=== PATIENT | male | born 1960 | race Hispanic/Latino ===

== ENCOUNTER 2018-03-11 17:00 | Inpatient (IN) | payer OTHER ==
[~2018-03-11] VITALS: Ht 157.5 cm; Wt 82.9 kg
[2018-03-11 17:39] LABS: BASOPHILS % (AUTO) 0.1 % (0.0-5.0); LYMPHOCYTES % (AUTO) 3.8 % (21.0-51.0); MEAN CORPUSCULAR HEMOGLOBIN 34.2 pg (27.0-33.0); MEAN CORPUSCULAR HGB CONC 32.1 g/dL (32.0-36.0); MEAN CORPUSCULAR VOLUME 106.7 fL (79-99); MONOCYTES % (AUTO) 7.9 % (3.0-13.0); NEUTROPHILS % (AUTO) 88.2 % (40.0-77.0); NUCLEATED RED BLOOD CELLS 0.1 % (0.0-0.19); PLATELET COUNT (AUTO) 101 K/uL (130-400); RED BLOOD CELL COUNT(AUTO) 1.43 MIL/uL (4.50-6.20); RED CELL DISTRIBUTION WIDTH 19.8 % (11.0-15.5); WHITE BLOOD COUNT (AUTO) 21.4 K/uL (4.8-10.8)
[2018-03-11] MEDS ORDERED: LACTATED RINGERS 1000ML 1,000 ML IV ONE (17:40)
[2018-03-11 17:50] LABS: HEMATOCRIT 15.2 % (42-54)
[2018-03-11 17:52] LABS: CREATININE 1.6 mg/dL (0.5-1.5); POTASSIUM 5.7 mmol/L (3.5-5.1)
[2018-03-11] MEDS ORDERED: CEFTRIAXONE SODIUM 1 GM ONE (18:40)
[2018-03-11] MEDS ORDERED: SODIUM CHLORIDE 0.9% 50 ML IV ONE (18:41)
[2018-03-11 18:54] LABS: INR 2.66 (0.85-1.15); PARTIAL THROMBOPLASTIN TIME 52.1 SEC (26.3-35.5); PROTHROMBIN TIME 27.4 SEC (9.6-11.6)
[2018-03-11] MEDS ORDERED: FAMOTIDINE/PF 20 MG/2 ML VIAL IV ONE (19:09)
[2018-03-11] MEDS ORDERED: OCTREOTIDE ACETATE 100 MCG/ML AMP IVP ONE (19:30)
[2018-03-11] MEDS ORDERED: SODIUM CHLORIDE 0.9% 250 ML IV ONE ×2 (19:35→21:05)
[2018-03-11] MEDS ORDERED: PHYTONADIONE 1 MG/0.5 ML AMP SQ SCH (20:30)
[2018-03-11] MEDS: SODIUM CHLORIDE 0.9% 1000ML 1,000 ML IV SCH (20:58)
[2018-03-11] MEDS ORDERED: ONDANSETRON HCL 4 MG/2 ML VIAL IV PRN (21:00)
[2018-03-11] MEDS ORDERED: LACTULOSE 20 GM/30 ML UDCUP PR SCH (21:00)
[2018-03-11] MEDS ORDERED: NOREPINEPHRINE BITARTRATE 1 MG/1 ML ML IV ONE (21:04)
[2018-03-11] MEDS ORDERED: SODIUM CHLORIDE 0.9% 100 ML IV ONE (21:14)
[2018-03-11 21:25] LABS: CREATININE 1.6 mg/dL (0.5-1.5); POTASSIUM 5.7 mmol/L (3.5-5.1)
[2018-03-11] MEDS: SODIUM POLYSTYRENE SULFONATE 15 GM/60 ML ML PO SCH (21:30)
[2018-03-11 22:57] LABS: APPEARANCE,URINE Cloudy (CLEAR); BILIRUBIN,URINE Small (NEGATIVE); COLOR,URINE Dark Yellow (YELLOW); GLUCOSE, URINE (UA) Negative (NEGATIVE); KETONES,URINE Trace mg/dL (NEGATIVE); LEUKOCYTE ESTERASE ,URINE Trace (NEGATIVE); NITRATE,URINE Positive (NEGATIVE); OCCULT BLOOD,URINE Nonhemolyzed Trace (NEGATIVE); PH,URINE 5.5 (5.0-8.0); PROTEIN,URINE Trace (NEGATIVE)
[2018-03-11 23:12] LABS: BACTERIA,URINE Few /HPF (None Seen); RBC,URINE 0-1 /HPF (0-1); SQUAMOUS EPITHELIAL CELL,UR 0-2 /HPF (0-2); WBC,URINE 0-1 /HPF (0-1)
[2018-03-12] VITALS (50 sets, daily range): BP systolic 81–156; BP diastolic 40–103
[2018-03-12 01:52] LABS: MEAN CORPUSCULAR HEMOGLOBIN 31.5 pg (27.0-33.0); PLATELET COUNT (AUTO) 73 K/uL (130-400)
[2018-03-12] MEDS ORDERED: CALCIUM GLUCONATE 1 GM/10 ML VIAL IV ONE ×2 (01:59)
[2018-03-12] MEDS ORDERED: PHARMACY COMMUNICATION MISC SCH (02:00)
[2018-03-12 02:02] LABS: BASOPHILS % (AUTO) 0.1 % (0.0-5.0); LYMPHOCYTES % (AUTO) 3.1 % (21.0-51.0); MEAN CORPUSCULAR HGB CONC 31.1 g/dL (32.0-36.0); MEAN CORPUSCULAR VOLUME 101.2 fL (79-99); MONOCYTES % (AUTO) 8.2 % (3.0-13.0); NEUTROPHILS % (AUTO) 88.6 % (40.0-77.0); RED BLOOD CELL COUNT(AUTO) 1.89 MIL/uL (4.50-6.20); RED CELL DISTRIBUTION WIDTH 19.7 % (11.0-15.5)
[2018-03-12 02:05] LABS: HEMATOCRIT 19.2 % (42-54); INR 1.83 (0.85-1.15); PARTIAL THROMBOPLASTIN TIME 44.1 SEC (26.3-35.5)
[2018-03-12 02:08] LABS: ALBUMIN 1.5 g/dL (3.5-5.0); BILIRUBIN,TOTAL 11.1 mg/dL (0.2-1.0); CREATININE 1.6 mg/dL (0.5-1.5)
[2018-03-12] MEDS ORDERED: CALCIUM GLUCONATE 2 GM in SODIUM CHLORIDE 0.9% 100 ML IV PRN (02:15)
[2018-03-12] MEDS ORDERED: DEXTROSE 50%-WATER 50 ML DISP.SYRIN IV ONE (02:20)
[2018-03-12] MEDS ORDERED: SODIUM BICARB 50MEQ 50ML VIAL ONE (02:42)
[2018-03-12] MEDS ORDERED: DEXTROSE 5%-WATER 1,000 ML IV ONE (02:42)
[2018-03-12] MEDS: SODIUM BICARB 8.4% 50ML SYRING 150 MEQ in DEXTROSE 5%-WATER 1,000 ML IV SCH ×2 (02:45→12:07)
[2018-03-12] MEDS ORDERED: DEXTROSE 10%-WATER 1,000 ML IV PRN (02:45)
[2018-03-12] MEDS ORDERED: GLUCAGON 1MG KIT 1 MG ML IM PRN (02:45)
[2018-03-12] MEDS ORDERED: PHYTONADIONE 10 MG/1 ML AMP ONE (02:58)
[2018-03-12] MEDS: LACTULOSE 20 GM/30 ML UDCUP PR SCH ×2 (03:30→20:18)
[2018-03-12] MEDS: SODIUM POLYSTYRENE SULFONATE 15 GM/60 ML ML RC SCH (03:30)
[2018-03-12] MEDS: PHYTONADIONE 10 MG/1 ML AMP SQ SCH (03:30)
[2018-03-12] MEDS: SODIUM CHLORIDE 0.9% 1000ML 1,000 ML IV SCH (03:38)
[2018-03-12] MEDS ORDERED: SODIUM CHLORIDE 0.9% 500ML 500 ML IV ONE (03:58)
[2018-03-12] MEDS: PANTOPRAZOLE SODIUM 80 MG in SODIUM CHLORIDE 0.9% 100 ML IV SCH ×2 (08:21→22:48)
[2018-03-12] MEDS: NOREPINEPHRINE 4MG/NS 250ML 250 ML IV PRN ×2 (08:22→23:36)
[2018-03-12] MEDS: OCTREOTIDE ACETATE 1,000 MCG in SODIUM CHLORIDE 0.9% 95 ML IV SCH (08:22)
[2018-03-12] MEDS ORDERED: COMPOUND IV MISC 1 EACH IVSOLN MISC PRN (08:30)
[2018-03-12 08:41] LABS: ABG BASE EXCESS -14.8 mmol/L (-2.0-3.0); ABG HCO3 8.8 mmol/L (21.0-28.0); ABG OXYGEN SATURATION 97.7 % (95.0-99.0); ABG PCO2 15 mmHg (35-48)
[2018-03-12] MEDS ORDERED: PHYTONADIONE 10 MG/1 ML AMP IV SCH (10:00)
[2018-03-12] MEDS: PHYTONADIONE 10 MG in SODIUM CHLORIDE 0.9% 50 ML SQ SCH (10:10)
[2018-03-12] MEDS ORDERED: MIDAZOLAM 100MG-0.9% NS 100ML 100 ML IV PRN (11:15)
[2018-03-12] MEDS ORDERED: ETOMIDATE 2 MG/ML 10 ML VIAL IVP ONE (12:00)
[2018-03-12] MEDS ORDERED: ROCURONIUM BROMIDE 10MG/1ML 5ML VL IV ONE (12:00)
[2018-03-12] MEDS ORDERED: SUCCINYLCHOLINE CHLORIDE 20 MG/ML 10 ML VIAL IVP ONE (12:00)
[2018-03-12] MEDS ORDERED: EPINEPHRINE 1 MG/ML AMPULE ONE (12:03)
[2018-03-12] MEDS: FENTANYL 2500MCG+NS 250ML 250 ML IV PRN (12:06)
[2018-03-12 12:56] LABS: ABG BASE EXCESS -11.4 mmol/L (-2.0-3.0); ABG HCO3 11.6 mmol/L (21.0-28.0); ABG OXYGEN SATURATION 99.3 % (95.0-99.0); ABG PCO2 21 mmHg (35-48)
[2018-03-12] MEDS: METOCLOPRAMIDE 10 MG/2 ML VIAL IVP SCH ×2 (14:06→20:17)
[2018-03-12 14:57] LABS: HEMATOCRIT 24.2 % (42-54); MEAN CORPUSCULAR HGB CONC 33.9 g/dL (32.0-36.0); MEAN CORPUSCULAR VOLUME 94.4 fL (79-99); PLATELET COUNT (AUTO) 67 K/uL (130-400); RED BLOOD CELL COUNT(AUTO) 2.57 MIL/uL (4.50-6.20); RED CELL DISTRIBUTION WIDTH 15.9 % (11.0-15.5); WHITE BLOOD COUNT (AUTO) 20.7 K/uL (4.8-10.8)
[2018-03-12 15:11] LABS: ALBUMIN 1.7 g/dL (3.5-5.0); BILIRUBIN,TOTAL 15.4 mg/dL (0.2-1.0); CREATININE 1.9 mg/dL (0.5-1.5); POTASSIUM 5.8 mmol/L (3.5-5.1); TOTAL PROTEIN, SERUM 4.9 g/dL (6.0-8.3)
[2018-03-12 15:31] LABS: PLATELET MORPHOLOGY COMMENT DECREASED
[2018-03-12] MEDS: ZOSYN 3.375GM+NS 50ML 50 ML IV SCH (19:11)
[2018-03-12] MEDS: SODIUM POLYSTYRENE SULFONATE 15 GM/60 ML ML PO SCH (20:18)
[2018-03-12 20:47] LABS: HEMATOCRIT 23.5 % (42-54); MEAN CORPUSCULAR HEMOGLOBIN 32.1 pg (27.0-33.0); MEAN CORPUSCULAR VOLUME 94.3 fL (79-99); NUCLEATED RED BLOOD CELLS 0.1 % (0.0-0.19); PLATELET COUNT (AUTO) 67 K/uL (130-400); WHITE BLOOD COUNT (AUTO) 23.5 K/uL (4.8-10.8)
[2018-03-12 21:15] LABS: ALBUMIN 1.6 g/dL (3.5-5.0); CREATININE 2.3 mg/dL (0.5-1.5); POTASSIUM 5.5 mmol/L (3.5-5.1); TOTAL PROTEIN, SERUM 4.7 g/dL (6.0-8.3)
[2018-03-12 21:16] LABS: BILIRUBIN,TOTAL 16.1 mg/dL (0.2-1.0)
[2018-03-13] VITALS (40 sets, daily range): BP systolic 90–132; BP diastolic 41–67
[2018-03-13 02:21] LABS: MEAN CORPUSCULAR HEMOGLOBIN 31.3 pg (27.0-33.0); MEAN CORPUSCULAR HGB CONC 33.7 g/dL (32.0-36.0); MEAN CORPUSCULAR VOLUME 92.8 fL (79-99); NUCLEATED RED BLOOD CELLS 0.1 % (0.0-0.19); PLATELET COUNT (AUTO) 55 K/uL (130-400); RED BLOOD CELL COUNT(AUTO) 2.48 MIL/uL (4.50-6.20); RED CELL DISTRIBUTION WIDTH 15.9 % (11.0-15.5); WHITE BLOOD COUNT (AUTO) 22.4 K/uL (4.8-10.8)
[2018-03-13 02:31] LABS: INR 2.33 (0.85-1.15); PARTIAL THROMBOPLASTIN TIME 39.2 SEC (26.3-35.5); PROTHROMBIN TIME 24.1 SEC (9.6-11.6)
[2018-03-13] MEDS: SODIUM BICARB 8.4% 50ML SYRING 150 MEQ in DEXTROSE 5%-WATER 1,000 ML IV SCH ×2 (02:34→17:45)
[2018-03-13] MEDS: PHYTONADIONE 10 MG/1 ML AMP SQ SCH (02:41)
[2018-03-13] MEDS: SODIUM POLYSTYRENE SULFONATE 15 GM/60 ML ML RC SCH (02:41)
[2018-03-13 02:44] LABS: ALBUMIN 1.5 g/dL (3.5-5.0); CREATININE 2.6 mg/dL (0.5-1.5); POTASSIUM 5.2 mmol/L (3.5-5.1); TOTAL PROTEIN, SERUM 4.5 g/dL (6.0-8.3)
[2018-03-13 02:49] LABS: BILIRUBIN,TOTAL 16.7 mg/dL (0.2-1.0)
[2018-03-13] MEDS: ZOSYN 3.375GM+NS 50ML 50 ML IV SCH ×2 (06:13→17:45)
[2018-03-13] MEDS: NOREPINEPHRINE 4MG/NS 250ML 250 ML IV PRN (07:46)
[2018-03-13 08:37] LABS: HEMATOCRIT 22.9 % (42-54); MEAN CORPUSCULAR HEMOGLOBIN 31.3 pg (27.0-33.0); MEAN CORPUSCULAR HGB CONC 33.6 g/dL (32.0-36.0); MEAN CORPUSCULAR VOLUME 93.2 fL (79-99); NUCLEATED RED BLOOD CELLS 0.1 % (0.0-0.19); PLATELET COUNT (AUTO) 47 K/uL (130-400); RED BLOOD CELL COUNT(AUTO) 2.46 MIL/uL (4.50-6.20); RED CELL DISTRIBUTION WIDTH 16.8 % (11.0-15.5); WHITE BLOOD COUNT (AUTO) 21.7 K/uL (4.8-10.8)
[2018-03-13 09:11] LABS: ALBUMIN 1.4 g/dL (3.5-5.0); CREATININE 2.9 mg/dL (0.5-1.5); POTASSIUM 4.8 mmol/L (3.5-5.1); TOTAL PROTEIN, SERUM 4.5 g/dL (6.0-8.3)
[2018-03-13 09:23] LABS: BILIRUBIN,TOTAL 17.5 mg/dL (0.2-1.0)
[2018-03-13] MEDS: PHYTONADIONE 10 MG in SODIUM CHLORIDE 0.9% 50 ML SQ SCH (10:13)
[2018-03-13] MEDS: PANTOPRAZOLE SODIUM 80 MG in SODIUM CHLORIDE 0.9% 100 ML IV SCH ×2 (10:15→22:23)
[2018-03-13 11:00] LABS: AMPHET/METH SCREEN,URINE NEGATIVE (NEGATIVE); BARBITURATE SCREEN, URINE NEGATIVE (NEGATIVE); BENZODIAZEPINES SCREEN,URINE POSITIVE (NEGATIVE); CANNABINOID SCREEN,URINE POSITIVE (NEGATIVE); COCAINE SCREEN,URINE NEGATIVE (NEGATIVE); OPIATE SCREEN,URINE NEGATIVE (NEGATIVE); PHENCYCLIDINE SCREEN,URINE NEGATIVE (NEGATIVE)
[2018-03-13] MEDS: INSULIN HUMULIN R 100 UNIT/ML 3ML SQ SCH ×2 (12:00→18:00)
[2018-03-13] MEDS: THIAMINE HCL 100 MG/ML 2ML VIAL IVP SCH ×2 (14:01→20:53)
[2018-03-13] MEDS: LACTULOSE 20 GM/30 ML UDCUP PR SCH ×2 (15:14→22:23)
[2018-03-13] MEDS: OCTREOTIDE ACETATE 1,000 MCG in SODIUM CHLORIDE 0.9% 95 ML IV SCH (17:45)
[2018-03-13] MEDS: SODIUM POLYSTYRENE SULFONATE 15 GM/60 ML ML PO SCH (21:30)
[2018-03-13] MEDS: FENTANYL 2500MCG+NS 250ML 250 ML IV PRN (23:46)
[2018-03-14] VITALS (24 sets, daily range): BP systolic 84–112; BP diastolic 41–63
[2018-03-14] MEDS: NOREPINEPHRINE 4MG/NS 250ML 250 ML IV PRN (02:00)
[2018-03-14] MEDS: LACTULOSE 20 GM/30 ML UDCUP PR SCH ×5 (02:45→21:54)
[2018-03-14] MEDS: SODIUM POLYSTYRENE SULFONATE 15 GM/60 ML ML RC SCH ×2 (02:45→19:44)
[2018-03-14] MEDS: PHYTONADIONE 10 MG/1 ML AMP SQ SCH ×2 (02:45→19:45)
[2018-03-14 05:17] LABS: HEMATOCRIT 24.1 % (42-54); MEAN CORPUSCULAR HGB CONC 34.7 g/dL (32.0-36.0); MEAN CORPUSCULAR VOLUME 95.2 fL (79-99); PLATELET COUNT (AUTO) 42 K/uL (130-400); RED BLOOD CELL COUNT(AUTO) 2.54 MIL/uL (4.50-6.20); RED CELL DISTRIBUTION WIDTH 16.9 % (11.0-15.5); WHITE BLOOD COUNT (AUTO) 15.3 K/uL (4.8-10.8)
[2018-03-14 05:27] LABS: INR 2.69 (0.85-1.15); PARTIAL THROMBOPLASTIN TIME 48.2 SEC (26.3-35.5); PROTHROMBIN TIME 27.7 SEC (9.6-11.6)
[2018-03-14 05:29] LABS: ABG BASE EXCESS 7.5 mmol/L (-2.0-3.0); ABG HCO3 27.9 mmol/L (21.0-28.0); ABG OXYGEN SATURATION 98.9 % (95.0-99.0); ABG PCO2 28 mmHg (35-48)
[2018-03-14 05:31] LABS: % IRON SATURATION 34.9 % (30-44)
[2018-03-14 05:40] LABS: ALBUMIN 1.3 g/dL (3.5-5.0); CREATININE 3.3 mg/dL (0.5-1.5); MAGNESIUM 1.6 mg/dL (1.80-2.40); PHOSPHORUS 2.4 mg/dL (2.5-4.9); POTASSIUM 3.8 mmol/L (3.5-5.1); TOTAL PROTEIN, SERUM 4.7 g/dL (6.0-8.3)
[2018-03-14 05:53] LABS: BILIRUBIN,TOTAL 17.8 mg/dL (0.2-1.0)
[2018-03-14 05:54] LABS: BILIRUBIN,DIRECT 12.3 mg/dL (0.0-0.3)
[2018-03-14] MEDS: INSULIN HUMULIN R 100 UNIT/ML 3ML SQ SCH ×5 (06:00→23:30)
[2018-03-14] MEDS: ZOSYN 3.375GM+NS 50ML 50 ML IV SCH ×2 (06:01→19:06)
[2018-03-14] MEDS: THIAMINE HCL 100 MG/ML 2ML VIAL IVP SCH ×3 (06:02→21:53)
[2018-03-14] MEDS: SODIUM BICARB 8.4% 50ML SYRING 150 MEQ in DEXTROSE 5%-WATER 1,000 ML IV SCH (06:34)
[2018-03-14] MEDS: PHYTONADIONE 10 MG in SODIUM CHLORIDE 0.9% 50 ML SQ SCH (10:39)
[2018-03-14] MEDS ORDERED: MIDAZOLAM HCL 1 MG/ML 2ML VIAL IVP PRN (12:45)
[2018-03-14 13:30] LABS: CHLORIDE,URINE RANDOM 26 mmol/L (110-250); CREATININE,URINE RANDOM 133 mg/dL (30-135); POTASSIUM,URINE RANDOM 62 mmol/L (25-125); SODIUM,URINE RANDOM < 15 mmol/l (40-220)
[2018-03-14] MEDS: 1/2 NORMAL SALINE 1,000 ML IV SCH (14:55)
[2018-03-14] MEDS: PANTOPRAZOLE SODIUM 80 MG in SODIUM CHLORIDE 0.9% 100 ML IV SCH (14:56)
[2018-03-14] MEDS: OCTREOTIDE ACETATE 100 MCG/ML AMP IV SCH ×2 (14:57→21:54)
[2018-03-14] MEDS: ALBUMIN (HUMAN) 25% 50 ML IV SCH ×2 (14:57→21:53)
[2018-03-14] MEDS ORDERED: MAGNESIUM 2GM PREMIX 50ML 50 ML IV SCH (19:00)
[2018-03-14] MEDS ORDERED: MAGNESIUM 2GM PREMIX 50ML 50 ML IV ONE (19:04)
[2018-03-14] MEDS: SODIUM POLYSTYRENE SULFONATE 15 GM/60 ML ML PO SCH (19:41)
[2018-03-14] MEDS: FENTANYL CITRATE PF 50 MCG/1 ML 2ML VIAL IVP PRN ×2 (20:49→23:28)
[2018-03-15] VITALS (23 sets, daily range): BP systolic 81–122; BP diastolic 38–69
[2018-03-15] MEDS: 1/2 NORMAL SALINE 1,000 ML IV SCH ×2 (01:44→15:46)
[2018-03-15] MEDS: FENTANYL CITRATE PF 50 MCG/1 ML 2ML VIAL IVP PRN ×2 (02:27→05:40)
[2018-03-15 03:55] LABS: BASOPHILS % (AUTO) 0.4 % (0.0-5.0); EOSINOPHILS % (AUTO) 1.1 % (0.0-8.0); HEMATOCRIT 23.2 % (42-54); LYMPHOCYTES % (AUTO) 5.1 % (21.0-51.0); MEAN CORPUSCULAR HGB CONC 33.2 g/dL (32.0-36.0); MEAN CORPUSCULAR VOLUME 96.3 fL (79-99); MONOCYTES % (AUTO) 10.5 % (3.0-13.0); NEUTROPHILS % (AUTO) 82.9 % (40.0-77.0); PLATELET COUNT (AUTO) 39 K/uL (130-400); RED BLOOD CELL COUNT(AUTO) 2.41 MIL/uL (4.50-6.20); RED CELL DISTRIBUTION WIDTH 17.9 % (11.0-15.5); WHITE BLOOD COUNT (AUTO) 15.8 K/uL (4.8-10.8)
[2018-03-15 04:23] LABS: ALBUMIN 1.6 g/dL (3.5-5.0); CREATININE 3.6 mg/dL (0.5-1.5); POTASSIUM 4.4 mmol/L (3.5-5.1)
[2018-03-15 04:26] LABS: BILIRUBIN,TOTAL 19.4 mg/dL (0.2-1.0)
[2018-03-15] MEDS: ALBUMIN (HUMAN) 25% 50 ML IV SCH ×3 (05:08→21:47)
[2018-03-15] MEDS: THIAMINE HCL 100 MG/ML 2ML VIAL IVP SCH ×3 (05:08→21:46)
[2018-03-15] MEDS: OCTREOTIDE ACETATE 100 MCG/ML AMP IV SCH ×3 (05:08→21:46)
[2018-03-15] MEDS: LACTULOSE 20 GM/30 ML UDCUP PR SCH ×3 (05:08→21:47)
[2018-03-15] MEDS: ZOSYN 3.375GM+NS 50ML 50 ML IV SCH ×2 (05:08→16:41)
[2018-03-15] MEDS: INSULIN HUMULIN R 100 UNIT/ML 3ML SQ SCH ×3 (05:23→16:33)
[2018-03-15] MEDS: PANTOPRAZOLE SODIUM 80 MG in SODIUM CHLORIDE 0.9% 100 ML IV SCH ×2 (11:17→21:48)
[2018-03-15] MEDS: PHYTONADIONE 10 MG in SODIUM CHLORIDE 0.9% 50 ML SQ SCH (11:21)
[2018-03-15] MEDS ORDERED: FENTANYL CITRATE PF 50 MCG/1 ML 2ML VIAL IVP PRN (13:30)
[2018-03-15] MEDS ORDERED: PHYTONADIONE 10 MG/1 ML AMP IM SCH (13:30)
[2018-03-15 16:43] LABS: ABG BASE EXCESS 2.4 mmol/L (-2.0-3.0); ABG HCO3 24.6 mmol/L (21.0-28.0); ABG OXYGEN SATURATION 98.3 % (95.0-99.0); ABG PCO2 32 mmHg (35-48)
[2018-03-15] MEDS: SODIUM POLYSTYRENE SULFONATE 15 GM/60 ML ML PO SCH (19:27)
[2018-03-15] MEDS: NOREPINEPHRINE 4MG/NS 250ML 250 ML IV PRN (21:48)
[2018-03-16] VITALS (24 sets, daily range): BP systolic 92–121; BP diastolic 44–71
[2018-03-16] MEDS: DEXTROSE 50%-WATER 50 ML DISP.SYRIN IV PRN (00:29)
[2018-03-16] MEDS ORDERED: SODIUM CHLORIDE 0.9% 500ML 500 ML IV ONE ×2 (00:35→08:57)
[2018-03-16] MEDS: LACTULOSE 20 GM/30 ML UDCUP PR SCH ×4 (01:13→21:47)
[2018-03-16] MEDS: PHYTONADIONE 10 MG/1 ML AMP SQ SCH (01:13)
[2018-03-16] MEDS: SODIUM POLYSTYRENE SULFONATE 15 GM/60 ML ML RC SCH (01:13)
[2018-03-16 04:08] LABS: BASOPHILS % (AUTO) 0.9 % (0.0-5.0); EOSINOPHILS % (AUTO) 2.9 % (0.0-8.0); LYMPHOCYTES % (AUTO) 7.8 % (21.0-51.0); MEAN CORPUSCULAR HEMOGLOBIN 33.8 pg (27.0-33.0); MEAN CORPUSCULAR VOLUME 96.5 fL (79-99); MONOCYTES % (AUTO) 12.6 % (3.0-13.0); NEUTROPHILS % (AUTO) 75.8 % (40.0-77.0); PLATELET COUNT (AUTO) 29 K/uL (130-400); RED CELL DISTRIBUTION WIDTH 18.2 % (11.0-15.5); WHITE BLOOD COUNT (AUTO) 11.3 K/uL (4.8-10.8)
[2018-03-16 04:14] LABS: HEMATOCRIT 19.3 % (42-54)
[2018-03-16 04:29] LABS: ALBUMIN 1.7 g/dL (3.5-5.0); CREATININE 3.9 mg/dL (0.5-1.5); POTASSIUM 3.7 mmol/L (3.5-5.1); TOTAL PROTEIN, SERUM 4.6 g/dL (6.0-8.3)
[2018-03-16] MEDS: 1/2 NORMAL SALINE 1,000 ML IV SCH ×2 (04:30→18:31)
[2018-03-16 04:38] LABS: BILIRUBIN,TOTAL 19.3 mg/dL (0.2-1.0)
[2018-03-16] MEDS: INSULIN HUMULIN R 100 UNIT/ML 3ML SQ SCH ×4 (05:07→18:00)
[2018-03-16] MEDS: ALBUMIN (HUMAN) 25% 50 ML IV SCH ×3 (05:30→21:44)
[2018-03-16] MEDS: OCTREOTIDE ACETATE 100 MCG/ML AMP IV SCH ×3 (05:30→21:46)
[2018-03-16] MEDS: ZOSYN 3.375GM+NS 50ML 50 ML IV SCH ×2 (05:30→18:35)
[2018-03-16] MEDS: THIAMINE HCL 100 MG/ML 2ML VIAL IVP SCH (05:30)
[2018-03-16] MEDS: PANTOPRAZOLE SODIUM 80 MG in SODIUM CHLORIDE 0.9% 100 ML IV SCH (09:53)
[2018-03-16] MEDS: PHYTONADIONE 10 MG in SODIUM CHLORIDE 0.9% 50 ML SQ SCH (11:30)
[2018-03-16] MEDS: SODIUM POLYSTYRENE SULFONATE 15 GM/60 ML ML PO SCH (21:30)
[2018-03-16] MEDS: OCTREOTIDE ACETATE 200 MCG/ML 5 ML VIAL IV SCH (21:46)
[2018-03-17] VITALS (26 sets, daily range): BP systolic 79–124; BP diastolic 45–77
[2018-03-17] MEDS: SODIUM POLYSTYRENE SULFONATE 15 GM/60 ML ML RC SCH (02:45)
[2018-03-17] MEDS: PHYTONADIONE 10 MG/1 ML AMP SQ SCH (02:45)
[2018-03-17] MEDS: MIDAZOLAM HCL 1 MG/ML 2ML VIAL IVP PRN ×5 (02:53→22:13)
[2018-03-17] MEDS: LACTULOSE 20 GM/30 ML UDCUP PR SCH ×2 (02:58→05:19)
[2018-03-17 03:38] LABS: BASOPHILS % (AUTO) 0.9 % (0.0-5.0); EOSINOPHILS % (AUTO) 1.4 % (0.0-8.0); HEMATOCRIT 23.7 % (42-54); LYMPHOCYTES % (AUTO) 5.5 % (21.0-51.0); MEAN CORPUSCULAR HEMOGLOBIN 33.1 pg (27.0-33.0); MEAN CORPUSCULAR HGB CONC 34.8 g/dL (32.0-36.0); MONOCYTES % (AUTO) 13.7 % (3.0-13.0); NEUTROPHILS % (AUTO) 78.5 % (40.0-77.0); PLATELET COUNT (AUTO) 18 K/uL (130-400); RED BLOOD CELL COUNT(AUTO) 2.49 MIL/uL (4.50-6.20); RED CELL DISTRIBUTION WIDTH 16.7 % (11.0-15.5); WHITE BLOOD COUNT (AUTO) 10.9 K/uL (4.8-10.8)
[2018-03-17 03:52] LABS: INR 2.5 (0.85-1.15); PARTIAL THROMBOPLASTIN TIME 65.7 SEC (26.3-35.5); PROTHROMBIN TIME 25.8 SEC (9.6-11.6)
[2018-03-17 04:01] LABS: CREATININE 3.7 mg/dL (0.5-1.5); MAGNESIUM 2.3 mg/dL (1.80-2.40); PHOSPHORUS 4.4 mg/dL (2.5-4.9); POTASSIUM 3.3 mmol/L (3.5-5.1)
[2018-03-17 04:12] LABS: BILIRUBIN,DIRECT 14.7 mg/dL (0.0-0.3); BILIRUBIN,TOTAL 22.9 mg/dL (0.2-1.0)
[2018-03-17] MEDS: OCTREOTIDE ACETATE 200 MCG/ML 5 ML VIAL IV SCH (05:18)
[2018-03-17] MEDS: OCTREOTIDE ACETATE 100 MCG/ML AMP IV SCH (05:19)
[2018-03-17] MEDS: ALBUMIN (HUMAN) 25% 50 ML IV SCH ×3 (05:28→21:47)
[2018-03-17] MEDS: ZOSYN 3.375GM+NS 50ML 50 ML IV SCH ×2 (05:28→18:08)
[2018-03-17] MEDS: INSULIN HUMULIN R 100 UNIT/ML 3ML SQ SCH ×4 (06:00→18:00)
[2018-03-17] MEDS ORDERED: PHARMACY COMMUNICATION MISC SCH (08:15)
[2018-03-17] MEDS: 1/2 NORMAL SALINE 1,000 ML IV SCH ×2 (08:31→21:47)
[2018-03-17] MEDS: PHYTONADIONE 10 MG in SODIUM CHLORIDE 0.9% 50 ML SQ SCH (08:31)
[2018-03-17 08:50] LABS: ABG BASE EXCESS 1.6 mmol/L (-2.0-3.0); ABG HCO3 25.1 mmol/L (21.0-28.0); ABG PCO2 36 mmHg (35-48)
[2018-03-17] MEDS ORDERED: PHYTONADIONE 10 MG/1 ML AMP IV SCH (09:00)
[2018-03-17] MEDS ORDERED: LACTULOSE 20 GM/30 ML UDCUP PR SCH (09:00)
[2018-03-17] MEDS: PANTOPRAZOLE SODIUM 80 MG in SODIUM CHLORIDE 0.9% 100 ML IV SCH (09:39)
[2018-03-17] MEDS: NOREPINEPHRINE 4MG/NS 250ML 250 ML IV PRN (10:33)
[2018-03-17] MEDS ORDERED: OCTREOTIDE ACETATE 200 MCG/ML 5 ML VIAL SQ SCH (14:00)
[2018-03-17] MEDS: OCTREOTIDE ACETATE 100 MCG/ML AMP SQ SCH ×2 (16:11→21:47)
[2018-03-17] MEDS: LACTULOSE 20 GM/30 ML UDCUP PO SCH ×2 (18:00→21:47)
[2018-03-17] MEDS: SODIUM POLYSTYRENE SULFONATE 15 GM/60 ML ML PO SCH (21:30)
[2018-03-18] VITALS (58 sets, daily range): BP systolic 74–155; BP diastolic 31–79
[2018-03-18] MEDS: SODIUM POLYSTYRENE SULFONATE 15 GM/60 ML ML RC SCH (02:45)
[2018-03-18 04:08] LABS: BASOPHILS % (AUTO) 0.6 % (0.0-5.0); EOSINOPHILS % (AUTO) 1.3 % (0.0-8.0); HEMATOCRIT 23.6 % (42-54); LYMPHOCYTES % (AUTO) 3.8 % (21.0-51.0); MEAN CORPUSCULAR HEMOGLOBIN 32.7 pg (27.0-33.0); MEAN CORPUSCULAR HGB CONC 34.2 g/dL (32.0-36.0); MEAN CORPUSCULAR VOLUME 95.6 fL (79-99); MONOCYTES % (AUTO) 11.1 % (3.0-13.0); NEUTROPHILS % (AUTO) 83.2 % (40.0-77.0); PLATELET COUNT (AUTO) 17 K/uL (130-400); RED BLOOD CELL COUNT(AUTO) 2.47 MIL/uL (4.50-6.20); RED CELL DISTRIBUTION WIDTH 17.3 % (11.0-15.5); WHITE BLOOD COUNT (AUTO) 12.8 K/uL (4.8-10.8)
[2018-03-18 04:24] LABS: INR 2.48 (0.85-1.15); PARTIAL THROMBOPLASTIN TIME 71.4 SEC (26.3-35.5); PROTHROMBIN TIME 25.6 SEC (9.6-11.6)
[2018-03-18 05:00] LABS: ALBUMIN 2.2 g/dL (3.5-5.0); CREATININE 3.7 mg/dL (0.5-1.5); MAGNESIUM 2.3 mg/dL (1.80-2.40); POTASSIUM 3.3 mmol/L (3.5-5.1); TOTAL PROTEIN, SERUM 5.3 g/dL (6.0-8.3)
[2018-03-18 05:15] LABS: BILIRUBIN,DIRECT 17.7 mg/dL (0.0-0.3); BILIRUBIN,TOTAL 25.5 mg/dL (0.2-1.0)
[2018-03-18] MEDS: INSULIN HUMULIN R 100 UNIT/ML 3ML SQ SCH ×4 (06:00→17:57)
[2018-03-18] MEDS: OCTREOTIDE ACETATE 100 MCG/ML AMP SQ SCH ×3 (06:39→22:15)
[2018-03-18] MEDS: ALBUMIN (HUMAN) 25% 50 ML IV SCH (06:39)
[2018-03-18] MEDS: ZOSYN 3.375GM+NS 50ML 50 ML IV SCH ×2 (06:40→17:12)
[2018-03-18] MEDS ORDERED: FUROSEMIDE 10 MG/ML 4ML VIAL IV SCH (09:00)
[2018-03-18] MEDS ORDERED: MIDODRINE HCL 5 MG TABLET NG SCH (09:00)
[2018-03-18] MEDS ORDERED: LACTULOSE 20 GM/30 ML UDCUP PO SCH (09:00)
[2018-03-18] MEDS ORDERED: RIFAXIMIN 200 MG TABLET NG SCH (09:00)
[2018-03-18] MEDS: 1/2 NORMAL SALINE 1,000 ML IV SCH ×2 (09:54→22:15)
[2018-03-18] MEDS: PANTOPRAZOLE 40 MG/VIAL IVP SCH (09:56)
[2018-03-18] MEDS: HYDROMORPHONE 1 MG/1 ML AMP IVP PRN ×2 (09:57→19:40)
[2018-03-18] MEDS: PHYTONADIONE 10 MG in SODIUM CHLORIDE 0.9% 50 ML SQ SCH (10:17)
[2018-03-18] MEDS ORDERED: ERYTHROMYCIN LACTOBIONATE 250 MG in SODIUM CHLORIDE 0.9% 100 ML IV SCH (12:00)
[2018-03-18] MEDS: SODIUM POLYSTYRENE SULFONATE 15 GM/60 ML ML PO SCH (19:46)
[2018-03-19] VITALS (21 sets, daily range): BP systolic 71–116; BP diastolic 38–66
[2018-03-19] MEDS: DEXTROSE 50%-WATER 50 ML DISP.SYRIN IV PRN (00:33)
[2018-03-19] MEDS: SODIUM POLYSTYRENE SULFONATE 15 GM/60 ML ML RC SCH (02:15)
[2018-03-19 04:04] LABS: HEMATOCRIT 21.7 % (42-54); LYMPHOCYTES % (AUTO) 8.4 % (21.0-51.0); MEAN CORPUSCULAR HEMOGLOBIN 33.6 pg (27.0-33.0); MEAN CORPUSCULAR HGB CONC 35.1 g/dL (32.0-36.0); MEAN CORPUSCULAR VOLUME 95.9 fL (79-99); MONOCYTES % (AUTO) 9.9 % (3.0-13.0); NEUTROPHILS % (AUTO) 76.7 % (40.0-77.0); NUCLEATED RED BLOOD CELLS 0.1 % (0.0-0.19); PLATELET COUNT (AUTO) 16 K/uL (130-400); RED BLOOD CELL COUNT(AUTO) 2.26 MIL/uL (4.50-6.20); RED CELL DISTRIBUTION WIDTH 17.3 % (11.0-15.5); WHITE BLOOD COUNT (AUTO) 9.6 K/uL (4.8-10.8)
[2018-03-19 04:15] LABS: INR 2.36 (0.85-1.15); PARTIAL THROMBOPLASTIN TIME 69.7 SEC (26.3-35.5); PROTHROMBIN TIME 24.4 SEC (9.6-11.6)
[2018-03-19 04:38] LABS: CREATININE 3.8 mg/dL (0.5-1.5); POTASSIUM 3.5 mmol/L (3.5-5.1); TOTAL PROTEIN, SERUM 5.1 g/dL (6.0-8.3)
[2018-03-19 05:27] LABS: BILIRUBIN,DIRECT 15.9 mg/dL (0.0-0.3); BILIRUBIN,TOTAL 25.1 mg/dL (0.2-1.0)
[2018-03-19] MEDS: INSULIN HUMULIN R 100 UNIT/ML 3ML SQ SCH ×2 (05:50)
[2018-03-19] MEDS: ZOSYN 3.375GM+NS 50ML 50 ML IV SCH (06:06)
[2018-03-19] MEDS: OCTREOTIDE ACETATE 100 MCG/ML AMP SQ SCH (06:06)
[2018-03-19] MEDS: HYDROMORPHONE 1 MG/1 ML AMP IVP PRN ×4 (06:28→23:51)
[2018-03-19] MEDS: PANTOPRAZOLE 40 MG/VIAL IVP SCH (08:29)
[2018-03-19] MEDS: PHYTONADIONE 10 MG in SODIUM CHLORIDE 0.9% 50 ML SQ SCH (08:29)
[2018-03-19] MEDS ORDERED: GLYCOPYRROLATE 1 MG/5 ML SYRINGE IV PRN (09:30)
[2018-03-19] MEDS: LORAZEPAM 2 MG/ML 1 ML VIAL IVP PRN ×3 (19:39→23:51)
[2018-03-20] MEDS: LORAZEPAM 2 MG/ML 1 ML VIAL IVP PRN ×2 (03:03→10:10)
[2018-03-20] MEDS: HYDROMORPHONE 1 MG/1 ML AMP IVP PRN (03:04)
[2018-03-20 07:30] VITALS: BP 84/44
[2018-03-20] MEDS ORDERED: IPRATROPIUM/ALBUTEROL SULFATE 3 ML SOLUTION IH PRN (14:00)
[2018-03-20] MEDS ORDERED: ACETYLCYSTEINE 20% 200MG/ML 4ML VIAL IH SCH (14:00)
== END 2018-03-20 19:24 | disposition home or self-care (01) | DRG 870 ==
LOC: EDH 17:00 → 2BH 17:01 → UNDOADMOB 17:01 → EDHIP 17:01 → 2BH 03-12 01:28 → EDHIP 03-12 01:28 → OBSVTOIN 03-12 06:27 → INTOOBSV 03-12 06:27 → 3CH 03-19 16:57
PROVIDERS: ADMIT Internal Medicine; ATTEND Internal Medicine
PROC: 5A1955Z Respiratory Ventilation, Greater than 96 Consecutive Hours (ICD-10-PCS; 2018-03-12)
PROC: 0BH17EZ Insertion of Endotracheal Airway into Trachea, Via Natural or Artificial Opening (ICD-10-PCS; 2018-03-12)
PROC: 06L38CZ Occlusion of Esophageal Vein with Extraluminal Device, Via Natural or Artificial Opening Endoscopic (ICD-10-PCS; 2018-03-12)
PROC: 02H633Z Insertion of Infusion Device into Right Atrium, Percutaneous Approach (ICD-10-PCS; 2018-03-12)
PROC: 0DH673Z Insertion of Infusion Device into Stomach, Via Natural or Artificial Opening (ICD-10-PCS; 2018-03-12)
PROC: 30233L1 Transfusion of Nonautologous Fresh Plasma into Peripheral Vein, Percutaneous Approach (ICD-10-PCS; principal; 2018-03-19)
PROC: 30233N1 Transfusion of Nonautologous Red Blood Cells into Peripheral Vein, Percutaneous Approach (ICD-10-PCS; 2018-03-19)
PROC: 30233K1 Transfusion of Nonautologous Frozen Plasma into Peripheral Vein, Percutaneous Approach (ICD-10-PCS; 2018-03-19)
DX: A41.9 Sepsis, unspecified organism (principal); G93.41 Metabolic encephalopathy; E43 Unspecified severe protein-calorie malnutrition; I85.11 Secondary esophageal varices with bleeding; J18.9 Pneumonia, unspecified organism; J96.01 Acute respiratory failure with hypoxia; K76.7 Hepatorenal syndrome; R57.8 Other shock; K92.2 Gastrointestinal hemorrhage, unspecified; D68.9 Coagulation defect, unspecified; E87.1 Hypo-osmolality and hyponatremia; D62 Acute posthemorrhagic anemia; E87.2 Acidosis; K76.6 Portal hypertension; N17.9 Acute kidney failure, unspecified; R65.20 Severe sepsis without septic shock; D64.9 Anemia, unspecified; E87.5 Hyperkalemia; I10 Essential (primary) hypertension; D69.59 Other secondary thrombocytopenia; E78.5 Hyperlipidemia, unspecified; E87.70 Fluid overload, unspecified; F10.129 Alcohol abuse with intoxication, unspecified; Z66 Do not resuscitate; I12.9 Hypertensive chronic kidney disease with stage 1 through stage 4 chronic kidney disease, or unspecified chronic kidney disease; K70.31 Alcoholic cirrhosis of liver with ascites; K70.40 Alcoholic hepatic failure without coma; N18.9 Chronic kidney disease, unspecified; W19.XXXA Unspecified fall, initial encounter; Z51.5 Encounter for palliative care; Z68.33 Body mass index [BMI] 33.0-33.9, adult; Z59.0 Homelessness; Z86.19 Personal history of other infectious and parasitic diseases; Y93.89 Activity, other specified; Y92.89 Other specified places as the place of occurrence of the external cause; Y99.8 Other external cause status
CPT/HCPCS: 31500; 36415; 36430; 36600; 43244; 70450; 71045; 72125; 76705; 80048; 80053; 80076; 80305; 81001; 82140; 82270; 82330; 82435; 82436; 82550; 82570; 82803; 82947; 82948; 83540; 83550; 83605; 83735; 84100; 84132; 84133; 84295; 84300; 84484; 85018; 85025; 85027; 85060; 85610; 85730; 86850; 86900; 86901; 86922; 86927; 87040; 93005; 94002; 94003; 94770; 99291; C1751; C1894; C9113; G0378; J0171; J0330; J0610; J0696; J1170; J1940; J2060; J2250; J2354; J2543; J2765; J3010; J3411; J3430; J3475; J3490; J7030; J7040; J7070; J7120; J7608; P9016; P9017; P9047